=== PATIENT | male | born 1950 | race Caucasian/White ===

== ENCOUNTER 2016-08-14 15:17 | Emergency (ER) | payer OTHER ==
[2016-08-14 16:27] LABS: BASOPHIL 0.5 % (0-2); EOSINOPHIL 1.6 % (0-7); HCT 44.6 % (42.0-52.0); HGB 15.4 g/dl (13.2-18.0); LYMPHOCYTE 25.9 % (15-48); MCH 30.5 pg (25.0-31.0); MCHC 34.5 g/dL (32.0-36.0); MCV 88.3 fL (78.0-100.0); MONOCYTE 8.1 % (0-12); MPV 10.8 fL (6.0-9.5); NEUTROPHIL 63.9 % (41-80); PLT 156 K/uL (150-400); RBC 5.05 M/uL (4.70-6.00); RDW 12.5 % (11.5-14.0); WBC 4.3 K/uL (4.0-10.5)
[2016-08-14 16:42] LABS: CREATININE 0.9 mg/dL (0.7-1.2); POTASSIUM 4.2 mmol/L (3.5-5.1)
[2016-08-14 16:43] LABS: PRO-BNP 28 pg/mL (0-125); TROPONIN T < 0.010 ng/mL
== END 2016-08-14 18:11 | disposition home or self-care (01) ==
LOC: FER 15:17
PROVIDERS: Emergency Medicine
DX: J40 Bronchitis, not specified as acute or chronic (principal); J98.01 Acute bronchospasm; N40.1 Benign prostatic hyperplasia with lower urinary tract symptoms; Z79.899 Other long term (current) drug therapy
CPT/HCPCS: 36415; 71020; 80048; 83880; 84484; 85025; 93005; 94640; J2930